=== PATIENT | female | born 1955 | race African-American/Black ===

== ENCOUNTER 2017-03-31 15:22 | Emergency (ER) | payer OTHER ==
--- NOTE | 2017-03-31 15:28 | PDOC ---
Rapid Medical Evaluation Time Seen by Provider: 03/31/17 15:25 Medical Evaluation: Allergies Allergy/AdvReac Type Severity Reaction Status Date / Time No Known Allergies Allergy Verified 07/27/13 22:12 03/31/17 15:25 I have performed a brief in-person evaluation of this patient. The patient presents with a chief complaint of: lightheadedness Pertinent physical exam findings: Neuro: CN2-12 grossly intact. Gait steady. Pulm: CTAB CARDS: RRR. S1`S2. No m/r/g. I have ordered the following: CBC, CMP, trop, UA, EKG, H/L The patient will proceed to the ED for further evaluation. Discharge Disposition - Diagnosis Dizziness - Referrals - Patient Instructions - Post Discharge Activity
[2017-03-31 15:30] VITALS: BMI 37.1
[2017-03-31 15:55] LABS: BASOPHIL 0.4 % (0-2.0); MCH 25.9 pg (25.7-33.7); MCHC 32.7 g/dl (32.0-36.0); MEAN CELL VOLUME 79.1 fl (80-96); MEAN PLT VOLUME 9.6 fl (7.5-11.1); NEUTROPHILS 56.9 % (42.8-82.8); PLATELET COUNT 154 K/MM3 (134-434); WHITE BLOOD COUNT 6.5 K/mm3 (4.0-10.0)
--- NOTE | 2017-03-31 15:57 | PDOC ---
History of Present Illness - General History Source: Patient Exam Limitations: No Limitations - History of Present Illness Initial Comments: 03/31/17 16:41 61 year old female, with significant past medical history of HTN (lisinopril 10mg). Hep C, and chronic back pain for which she takes percocet, who presents to the emergency room complaining of 1 episode of lightheadedness that occurred just prior to arrival to the ED. The patient explains that she felt lightheaded , like she was going to pass out, while walking into work. She denies LOC, chest pain, SOB, palpitations, dizziness as if the room was spinning, and headache prior to or after this episode. Her employees took her blood pressure at work, which was 200/122. She states that she did not take her blood pressure medications this morning because she was rushing out to work. She also notes that the only thing she had to eat today was sunflower seeds. At this time, the patient does not have any complaints. Denies LOC. Denies chest pain, SOB, palpitations. Denies dizziness, headache, changes in vision. Allergies: NKA <Izzy Sweet - Last Filed: 03/31/17 16:41> <Sandra Dubose - Last Filed: 03/31/17 17:41> - General Chief Complaint: Lightheaded Stated Complaint: HIGH BP, DIZZINESS Time Seen by Provider: 03/31/17 15:25 Past History <Izzy Sweet - Last Filed: 03/31/17 16:41> - Past Medical History COPD: No HTN: Yes Liver Disease: Yes (hep c) - Suicide/Smoking/Psychosocial Hx Smoking History: Former smoker Have you smoked in the past 12 months: No Information on smoking cessation initiated: No <Sandra Dubose - Last Filed: 03/31/17 17:41> - Past Medical History Allergies/Adverse Reactions: Allergies Allergy/AdvReac Type Severity Reaction Status Date / Time No Known Allergies Allergy Verified 03/31/17 15:26 Home Medications: Ambulatory Orders No Home Medications 0 dose .ROUTE UTDICT 07/27/13 Oxycodone HCl/Acetaminophen [Percocet 5-325 mg Tablet] 1 - 2 tab PO Q6H #20 tablet 07/28/13 Review of Systems - Review of Systems Able to Perform ROS?: Yes Comments:: 03/31/17 16:41 GENERAL/CONSTITUTIONAL: No fever or chills. No weakness. HEAD, EYES, EARS, NOSE AND THROAT: No change in vision. No ear pain or discharge. No sore throat. GASTROINTESTINAL: No nausea, vomiting, diarrhea or constipation. GENITOURINARY: No dysuria, frequency, or change in urination. CARDIOVASCULAR: No chest pain or shortness of breath. RESPIRATORY: No cough, wheezing, or hemoptysis. MUSCULOSKELETAL: No joint or muscle swelling or pain. No neck or back pain. SKIN: No rash NEUROLOGIC: +lightheadedness. No headache, vertigo, loss of consciousness, or change in strength/sensation. ENDOCRINE: No increased thirst. No abnormal weight change. HEMATOLOGIC/LYMPHATIC: No anemia, easy bleeding, or history of blood clots. ALLERGIC/IMMUNOLOGIC: No hives or skin allergy. <MickiIzzy - Last Filed: 03/31/17 16:41> *Physical Exam - Vital Signs Last Vital Signs Temp Pulse Resp BP Pulse Ox 97.9 F 97 H 17 168/123 97 03/31/17 15:26 03/31/17 15:26 03/31/17 15:26 03/31/17 15:26 03/31/17 15:26 - Physical Exam Comments: 03/31/17 16:42 Constitutional: Awake, alert, oriented. No acute distress. Head: Normocephalic. Atraumatic Eyes: PERRL. EOMI. Conjunctivae are not pale. ENT: Mucous membranes are moist and intact. Posterior pharynx without exudates or erythema. Uvula midline. Neck: Supple. Full ROM. No lymphadenopathy. Cardiovascular: Regular rate. Regular rhythm. S1, S2 regular. Distal pulses are 2+ and symmetric. Pulmonary/Chest: No evidence of respiratory distress. Clear to auscultation bilaterally No wheezing, rales or rhonchi. Abdominal: Soft and non-distended. There is no tenderness. No rebound, guarding or rigidity. No organomegaly. No palpable masses. Good bowel sounds. Back: No CVA tenderness. Musculoskeletal: No edema. No cyanosis. No clubbing. Full range of motion in all extremities. Nocalf tenderness. Radial/pedal pulses are intact and 2+ bilaterally Skin: Skin is warm and dry. No petechiae. No purpura. Neurological: Alert and oriented to person, place, and time. Cranial nerves II -XII are grossly intact. Normal speech. Strength is grossly symmetric. No sensory deficits. Psychiatric: Good eye contact. Normal interaction, affect and behavior. <Izzy Sweet - Last Filed: 03/31/17 16:41> - Vital Signs Last Vital Signs Temp Pulse Resp BP Pulse Ox 97.9 F 97 H 17 168/123 97 03/31/17 15:26 03/31/17 15:26 03/31/17 15:26 03/31/17 15:26 03/31/17 15:26 <Sandra Dubose - Last Filed: 03/31/17 17:41> Heart Score/ECG Review - ECG Intrepretation Comment:: 03/31/17 16:59 sinus at 71, nl axis, nl interval, lvh, no acute st/t wave findings, pacs <Sandra Dubose - Last Filed: 03/31/17 17:41> ED Treatment Course - LABORATORY CBC & Chemistry Diagram: 03/31/17 15:50 03/31/17 15:50 - ADDITIONAL ORDERS Additional order review: Laboratory Results 03/31/17 15:50 Urine Color Ltyellow Urine Appearance Slcloudy Urine pH 7.0 Ur Specific [place] 1.011 Urine Protein Negative Urine Glucose (UA) Negative Urine Ketones Negative Urine Blood Negative Urine Nitrite Negative Urine Bilirubin Negative Urine Urobilinogen Negative 03/31/17 15:50 RBC 5.36 H MCV 79.1 L MCHC 32.7 RDW 14.0 MPV 9.6 Neutrophils % 56.9 Lymphocytes % 29.4 Monocytes % 12.3 H Eosinophils % 1.0 Basophils % 0.4 <Izzy Sweet - Last Filed: 03/31/17 16:41> - LABORATORY CBC & Chemistry Diagram: 03/31/17 15:50 03/31/17 15:50 <Sandra Dubose - Last Filed: 03/31/17 17:41> Medical Decision Making - Medical Decision Making 03/31/17 16:22 a/p: 61yo female with noncompliance with BP meds and lightheaded at work -will check labs, ekg -neuro intact -will dose BP meds in ED -repeat bp on both arms 185/118 L, 190/111 R -no cp/sob/no other symptoms -lightheadedness resolved with eating lunch (in the ED) -will monitor and reassess -suspect elevated BP as cause of BP, will lower in ED. -had routine physical/mammogram yesterday at [facility] and bp was normal in the office per the patient 03/31/17 17:38 repeat bp 160/92. tolerated po. feeling better. no complaints. no lightheadedness. no cp. discussed need to take BP meds daily. discussed risks of missing her BP meds. discussed all reasons to return to the ED and need for followup. Answered all questions. Discussed labs and ekg findings. Pt stable for d/c to home. <Sandra Dubose - Last Filed: 03/31/17 17:41> *DC/Admit/Observation/Transfer - Attestations Scribe Attestion: 03/31/17 16:42 Documentation prepared by IJEOMA Marvin, acting as medical coding manager for Sandra Dubose DO. <Izzy Sweet - Last Filed: 03/31/17 16:41> - Discharge Dispostion Admit: No - Attestations Physician Attestion: 03/31/17 16:24 I, Dr. Sandra Dubose DO, attest that this document has been prepared under my direction and personally reviewed by me in its entirety. I further attest, that it accurately reflects all work, treatment, procedures and medical decision -making performed by me. <Sandra Dubose - Last Filed: 03/31/17 17:41> Diagnosis at time of Disposition: Dizziness, Hypertension - Discharge Dispostion Disposition: HOME Condition at time of disposition: Stable - Referrals Referrals: Simeon Reyes MD [Staff Physician] - - Patient Instructions Printed Discharge Instructions: High Blood Pressure, DI for Dizziness- Nonvertigo Additional Instructions: Please take your Blood Pressure medication every day. Please follow up for a repeat BP check next week with your doctor. Please watch your salt intake. Please return to the ED with any further complaints.
[2017-03-31 16:03] LABS: URINE APPEARANCE SLCLOUDY; URINE BILIRUBIN NEGATIVE (NEGATIVE); URINE BLOOD NEGATIVE (NEGATIVE); URINE COLOR LTYELLOW; URINE GLUCOSE (UA) NEGATIVE (NEGATIVE); URINE KETONE NEGATIVE (NEGATIVE); URINE NITRITE NEGATIVE (NEGATIVE); URINE PROTEIN NEGATIVE (NEGATIVE); URINE UROBILINOGEN NEGATIVE mg/dL (0.2-1.0)
[2017-03-31 16:17] LABS: ALBUMIN 3.6 g/dl (3.4-5.0); ANION GAP 8 (8-16); BILIRUBIN,TOTAL 0.3 mg/dL (0.2-1.0); CALCIUM 8.8 mg/dL (8.5-10.1); CO2 28 mmol/L (21-32); CREATININE 0.7 mg/dL (0.55-1.02); GLUCOSE,RANDOM 89 mg/dL (74-106); SGOT/AST 27 U/L (15-37); SGPT/ALT 32 U/L (12-78); TOT PROT 8.5 g/dl (6.4-8.2)
[2017-03-31 16:20] LABS: ALK PHOS 64 U/L (45-117); CPK 306 IU/L (26-192); TROPONIN I < 0.02 ng/ml (0.00-0.05)
[2017-03-31] MEDS ORDERED: LISINOPRIL 10 MG TABLET (FP) PO ONE (16:25)
[2017-03-31] MEDS ORDERED: LISINOPRIL 5 MG TABLET (FP) ONE (16:32)
[2017-03-31 17:01] VITALS: BP 179/97; PULSE 79; TEMP 97.4
[2017-03-31 18:46] LABS: URINE LEUK ESTERASE TRACE (NEGATIVE)
[2017-03-31 20:04] LABS: URINE BACTERIA FEW /hpf (NEGATIVE); URINE RBC 0-2 /hpf (0-3)
--- NOTE | 2017-04-01 10:04 | EKG ---
Test Reason : Blood Pressure : / mmHG Vent. Rate : 069 BPM Atrial Rate : 069 BPM P-R Int : 150 ms QRS Dur : 084 ms QT Int : 412 ms P-R-T Axes : 039 009 026 degrees QTc Int : 441 ms SINUS RHYTHM WITH MARKED SINUS ARRHYTHMIA MODERATE VOLTAGE CRITERIA FOR LVH, MAY BE NORMAL VARIANT NO PREVIOUS ECGS AVAILABLE Confirmed by COCO PERALTA MD ([id number]) on 04/01/2017 10:04:11 AM Referred By: Confirmed By:COCO PERALTA MD
== END 2017-03-31 18:05 | disposition home or self-care (01) ==
LOC: JER 15:22
DX: I10 Essential (primary) hypertension (principal); B18.2 Chronic viral hepatitis C; M54.89 Other dorsalgia; Z87.891 Personal history of nicotine dependence
CPT/HCPCS: 36415; 80053; 81003; 81015; 82550; 82553; 84484; 85025; 93005; 93010; 99282-25